=== PATIENT | male | born 1960 | race African-American/Black ===

== ENCOUNTER 2022-08-16 17:05 | Inpatient (IN) | payer OTHER ==
[2022-08-16 17:48] VITALS: BMI 20.9
[2022-08-16] MEDS ORDERED: IBUPROFEN 600 MG TABLET (FP) PO PRN (19:45)
[2022-08-16] MEDS ORDERED: MAGNESIUM HYDROX 2400MG/30ML ORAL SUSPENSION 30 ML CUP PO PRN (19:45)
[2022-08-16] MEDS ORDERED: ACETAMINOPHEN 325 MG TABLET (FP) PO PRN (19:45)
[2022-08-16] MEDS ORDERED: LOPERAMIDE HCL 2 MG CAPSULE PO PRN (19:45)
[2022-08-16] MEDS ORDERED: BENZONATATE 200 MG CAPSULE PO PRN (19:45)
[2022-08-16] MEDS ORDERED: NALOXONE HCL (KLOXXADO) 8 MG SPRAY NS PRN (19:45)
[2022-08-16] MEDS ORDERED: IBUPROFEN 400 MG TABLET (FP) PO PRN (19:45)
[2022-08-16] MEDS ORDERED: BISMUTH SUBSALICYLATE 524 MG/30 ML PO PRN (19:45)
[2022-08-16] MEDS ORDERED: DICYCLOMINE HCL 10 MG CAPSULE PO PRN (19:45)
[2022-08-16] MEDS ORDERED: NICOTINE 10 MG CARTRIDGE (INHALER) IH PRN (19:45)
[2022-08-16] MEDS ORDERED: BENZOCAINE/MENTHOL (CHLORASEPTIC ) LOZENGE MM PRN (19:45)
[2022-08-16] MEDS ORDERED: ONDANSETRON *ODT* 4 MG TABLET SL PRN (19:45)
[2022-08-16] MEDS ORDERED: NALOXONE HCL 0.4 MG/ML VIAL IM PRN (19:45)
[2022-08-16] MEDS ORDERED: diazePAM 5 MG TABLET PO PRN (19:45)
[2022-08-16] MEDS ORDERED: guaiFENesin 600 MG TABLET.ER (FP) PO PRN (19:45)
[2022-08-16] MEDS ORDERED: POLYETHYLENE GLYCOL (HEALTHYLAX) 3350 17 GM PACKET PO PRN (19:45)
[2022-08-16] MEDS ORDERED: MAG HYDROX/AL HYDROX/SIMETH 30 ML UNIT-DOSE CUP PO PRN (19:45)
[2022-08-16] MEDS: diazePAM 5 MG TABLET PO SCH (23:01)
[2022-08-16] MEDS: THIAMINE HCL 100 MG TABLET (FP) PO SCH (23:01)
[2022-08-16] MEDS: levETIRAcetam 500 MG TABLET (FP) PO SCH (23:02)
[2022-08-16] MEDS: MELATONIN 5 MG TABLETS PO SCH (23:37)
[2022-08-17] MEDS: diazePAM 5 MG TABLET PO SCH ×4 (06:37→22:47)
[2022-08-17] MEDS: levETIRAcetam 500 MG TABLET (FP) PO SCH ×2 (10:33→22:47)
[2022-08-17] MEDS: PRENATAL VITAMINS W/ FOLIC ACID TABLET (FP) PO SCH (10:33)
[2022-08-17] MEDS: METHOCARBAMOL 500 MG TABLET PO PRN (10:33)
[2022-08-17] MEDS: hydrOXYzine PAMOATE 25 MG CAPSULE (FP) PO PRN (10:33)
[2022-08-17 11:55] LABS: HEMATOCRIT 36.6 % (35.4-49); HEMOGLOBIN 12.4 GM/dL (11.7-16.9); MCH 31.5 pg (25.7-33.7); MCHC 33.9 g/dl (32.0-35.9); MEAN CELL VOLUME 92.7 fl (80-96); MEAN PLT VOLUME 8.6 fl (7.5-11.1); PLATELET COUNT 239 10^3/uL (134-434); RBC 3.95 M/mm3 (4.00-5.60); RDW 14.9 % (11.9-15.9); WHITE BLOOD COUNT 6.2 K/mm3 (4.0-10.0)
[2022-08-17 11:59] LABS: POTASSIUM 4.2 mmol/L (3.5-5.1)
[2022-08-17] MEDS ORDERED: PNEUMOC 20-VAL CONJ-DIP CRM/PF 0.5 ML SYRINGE IM ONE (12:00)
[2022-08-17 12:05] LABS: CALCIUM 9.6 mg/dL (8.5-10.1)
[2022-08-17 12:06] LABS: ALBUMIN 3.6 g/dl (3.4-5.0); BLOOD UREA NITROGEN 15.1 mg/dL (7-18)
[2022-08-17 12:09] LABS: CREATININE 0.8 mg/dL (0.55-1.3)
[2022-08-17 12:11] LABS: BILIRUBIN,TOTAL 0.9 mg/dL (0.2-1); TOT PROT 6.1 g/dl (6.4-8.2)
[2022-08-17] MEDS: THIAMINE HCL 100 MG TABLET (FP) PO SCH (22:47)
[2022-08-17] MEDS: MELATONIN 5 MG TABLETS PO SCH (23:04)
[2022-08-18] MEDS: diazePAM 5 MG TABLET PO SCH ×3 (05:22→22:56)
[2022-08-18] MEDS: PRENATAL VITAMINS W/ FOLIC ACID TABLET (FP) PO SCH (10:39)
[2022-08-18] MEDS: METHOCARBAMOL 500 MG TABLET PO PRN (10:39)
[2022-08-18] MEDS: hydrOXYzine PAMOATE 25 MG CAPSULE (FP) PO PRN (10:39)
[2022-08-18] MEDS: levETIRAcetam 500 MG TABLET (FP) PO SCH ×2 (10:40→22:56)
[2022-08-18] MEDS: THIAMINE HCL 100 MG TABLET (FP) PO SCH (22:56)
[2022-08-18] MEDS: MELATONIN 5 MG TABLETS PO SCH (22:56)
[2022-08-19] MEDS: diazePAM 5 MG TABLET PO SCH ×2 (05:50→18:15)
[2022-08-19] MEDS: PRENATAL VITAMINS W/ FOLIC ACID TABLET (FP) PO SCH (10:40)
[2022-08-19] MEDS: levETIRAcetam 500 MG TABLET (FP) PO SCH ×2 (10:40→21:55)
[2022-08-19] MEDS: METHOCARBAMOL 500 MG TABLET PO PRN (11:27)
[2022-08-19] MEDS: hydrOXYzine PAMOATE 25 MG CAPSULE (FP) PO PRN (11:27)
[2022-08-19] MEDS: MELATONIN 5 MG TABLETS PO SCH (21:55)
[2022-08-19] MEDS: THIAMINE HCL 100 MG TABLET (FP) PO SCH (21:55)
[2022-08-20] MEDS ORDERED: diazePAM 5 MG TABLET PO ONE (06:00)
[2022-08-20 09:17] VITALS: BP 136/77; PULSE 61; RESP 17; TEMP 99.1
[2022-08-20] MEDS: PRENATAL VITAMINS W/ FOLIC ACID TABLET (FP) PO SCH (10:51)
[2022-08-20] MEDS: levETIRAcetam 500 MG TABLET (FP) PO SCH (10:51)
== END 2022-08-20 11:28 | disposition home or self-care (01) | DRG 775 ==
LOC: YASAS 17:05 → Y6N 19:09
PROVIDERS: ADMIT Allergy & Immunology; ATTEND Surgery
PROC: HZ2ZZZZ Detoxification Services for Substance Abuse Treatment (ICD-10-PCS; principal; 2022-08-16)
DX: F10.230 Alcohol dependence with withdrawal, uncomplicated (principal); F17.213 Nicotine dependence, cigarettes, with withdrawal; F41.9 Anxiety disorder, unspecified; F32.A Depression, unspecified; G40.909 Epilepsy, unspecified, not intractable, without status epilepticus; I25.10 Atherosclerotic heart disease of native coronary artery without angina pectoris; I10 Essential (primary) hypertension; M54.50 Low back pain, unspecified; G89.29 Other chronic pain; R76.11 Nonspecific reaction to tuberculin skin test without active tuberculosis; Z99.89 Dependence on other enabling machines and devices; Z28.310 Unvaccinated for COVID-19; Z28.9 Immunization not carried out for unspecified reason
CPT/HCPCS: 36415; 80053; 83036; 85027; 86780; 87635; 87811; 90677